=== PATIENT | male | born 1970 | race African-American/Black ===

== ENCOUNTER 2021-01-15 08:46 | Emergency (ER) | payer MEDICARE, MEDICAID ==
[~2021-01-15] VITALS: Ht 175.3 cm; Wt 74.8 kg
[2021-01-15 08:47] VITALS: BP 111/72
--- NOTE | 2021-01-15 08:48 | NUR ---
[facility] to bed 6 at this time.
[2021-01-15] MEDS ORDERED: KETOROLAC 30 MG/ML VIAL IM ONE (09:00)
--- NOTE | 2021-01-15 09:04 | NUR ---
TO X-RAY VIA WHEELCHAIR.
[2021-01-15] MEDS ORDERED: CYCLOBENZAPRINE 10 MG TAB PO ONE (09:05)
--- NOTE | 2021-01-15 09:14 | NUR ---
50 Y/O M BIBA C/O MID AND LOWER BACK PAIN 08/25 STARTED ONE WEEK AGO. PT THINKS IT'S FROM THE MATTRESS HE IS SLEEPING IN. PT DENIES ANY FALL OR INJURY. ROBBIE HX: EPILEPSY, EUFEMIA'S DISEASE
[2021-01-15] MEDS ORDERED: CYCL-711 PO (09:58)
--- NOTE | 2021-01-15 10:01 | NUR ---
GAVE REPORT TO [facility]. THEY WILL CALL BACK WITH ETA.
--- NOTE | 2021-01-15 10:04 | NUR ---
TALK TO [facility] AT [facility] THE ETA TO [facility] IS 20 MIN.
[2021-01-15 10:31] VITALS: BP 111/73
--- NOTE | 2021-01-15 10:34 | NUR ---
Patient discharged with v/s stable. Written and verbal after care instructions given and explained. Patient alert, oriented and verbalized understanding of instructions. Ambulatory with steady gait. All questions addressed prior to discharge. ID band removed. Patient advised to follow up with PMD. Rx of CYCLOBENZAPRINE HCI given. Opportunity to ask questions provided and answered.
--- NOTE | 2021-01-15 10:35 | NUR ---
The patient's care was reviewed and supervised by Hien Tyler RN.
== END 2021-01-15 10:34 ==
LOC: MED 08:46
DX: S39.012A Strain of muscle, fascia and tendon of lower back, initial encounter (principal); M53.3 Sacrococcygeal disorders, not elsewhere classified; Z79.899 Other long term (current) drug therapy; X58.XXXA Exposure to other specified factors, initial encounter; Y92.89 Other specified places as the place of occurrence of the external cause; Y93.89 Activity, other specified; Y99.8 Other external cause status
CPT/HCPCS: 72110; 96372; 99283; J1885

== ENCOUNTER 2022-08-24 11:24 | Emergency (ER) | payer OTHER ==
[~2022-08-24] VITALS: Ht 175.3 cm; Wt 72.1 kg
[~2022-08-24 11:24] MED LIST: CYCL-711 PO
--- NOTE | 2022-08-24 11:25 | NUR ---
BIBA BLS TO ER BED 7
--- NOTE | 2022-08-24 11:51 | NUR ---
MD ALMENDAREZ AT BEDSIDE FOR EVALUATION
[2022-08-24 11:59] VITALS: BP 118/78; PULSE 79; RESP 20; TEMP 97.8; O2SAT 99
[2022-08-24 12:00] VITALS: PULSE 83; O2SAT 100
[2022-08-24] MEDS ORDERED: NACL 0.9% 1,000 ML IV ONE (12:00)
[2022-08-24 12:23] LABS: BASOPHILS % (AUTO) 0.8 % (0.0-2.0); EOSINOPHILS # (AUTO) 0.1 K/uL (0-0.4); EOSINOPHILS % (AUTO) 1.9 % (0.0-4.0); HEMATOCRIT 39.6 % (36-52); HEMOGLOBIN 13.2 g/dL (12.0-18.0); LYMPHOCYTES # (AUTO) 1.6 K/uL (2.0-11.5); LYMPHOCYTES % (AUTO) 37.8 % (20.5-51.1); MEAN CORPUSCULAR HEMOGLOBIN 31 pg (27-31); MEAN CORPUSCULAR HGB CONC 33 g/dL (33-37); MEAN CORPUSCULAR VOLUME 94.1 fL (80-94); MONOCYTES # (AUTO) 0.5 K/uL (0.8-1.0); MONOCYTES % (AUTO) 11.1 % (1.7-9.3); NEUTROPHILS # (AUTO) 2.1 K/uL (1.8-7.7); NEUTROPHILS % (AUTO) 48.4 % (42.2-75.2); PLATELET COUNT (AUTO) 302 K/uL (140-450); RED BLOOD CELL COUNT(AUTO) 4.21 MIL/uL (4.20-6.10); WHITE BLOOD COUNT (AUTO) 4.2 K/uL (4.8-10.8)
--- NOTE | 2022-08-24 12:23 | NUR ---
pt taken to ct via josh
--- NOTE | 2022-08-24 12:32 | NUR ---
pt brought back via josh
[2022-08-24 12:52] LABS: ALBUMIN 3.8 g/dL (3.4-5.0); ANION GAP 9.9 (8-16); ASPARTATE AMINOTRANSFERASE 20 U/L (15-37); CARBON DIOXIDE 30.6 mmol/L (21-32); CHLORIDE 103 mmol/L (98-107); GFR ARICAN-AMERICAN 101 mL/min (>90); GLUCOSE 90 mg/dL (74-106); POTASSIUM 4.5 mmol/L (3.5-5.1); SODIUM SERUM 139 mmol/L (136-145); TOTAL BILIRUBIN 0.2 mg/dL (0.0-1.0); UREA NITROGEN, BLOOD 8 mg/dL (7-18)
--- NOTE | 2022-08-24 13:46 | NUR ---
IV removed, catheter intact and site benign. Applied folded 4x4 gauze and tape to stop bleeding.
--- NOTE | 2022-08-24 13:48 | NUR ---
The patient's care was reviewed and supervised by PENNY QUICK RN.
--- NOTE | 2022-08-24 13:48 | NUR ---
Patient discharged with v/s stable. Written and verbal after care instructions FOR [facility] given and explained. Patient verbalized understanding. Ambulatory with steady gait. All questions addressed prior to discharge. Advised to follow up with PMD. REPORT GIVEN TO JORGE AT [facility]
== END 2022-08-24 13:48 | disposition home or self-care (01) ==
LOC: MED 11:24
DX: R55 Syncope and collapse (principal); Z79.899 Other long term (current) drug therapy
CPT/HCPCS: 36415; 70450; 71045; 80053; 84484; 85025; 93005; 96360; 99285; J7030; Q0092